=== PATIENT | male | born 1985 ===

== ENCOUNTER 2021-06-03 09:36 | Emergency (ER) | payer OTHER, SELFPAY ==
[2021-06-03 09:42] VITALS: BP 153/84; PULSE 62; RESP 18; TEMP 36.7; O2SAT 99; BMI 25.7
--- NOTE | 2021-06-03 10:13 | DI.RAD.S_ITS ---
PROCEDURE: XR FOOT RT MIN 3V INDICATIONS: Injury TECHNIQUE: 3 views of the foot were acquired. COMPARISON: [facility], CR, XR ANKLE RT MIN 3V, 06/03/2021, 10:16. FINDINGS: Bones: There is a tiny avulsion fracture fragment seen along the lateral aspect of the talus. No additional fractures or dislocations. No suspicious bony lesions. Incidental note is made of accessory ossicles, an os tibiale externum and os peroneum. Soft tissues: No tibiotalar joint effusion. Achilles tendon appears normal. IMPRESSION: Tiny avulsion fracture fragment seen lateral to the talus. This may be from the talus itself or be an avulsion fracture from the distal fibula. This is better seen on the accompanying ankle plain films. If it would be helpful for clinical management decision making in this patient with this given history, please consider a dedicated ankle CT for further evaluation. Dictated by: Wily Tellez M.D. on 06/03/2021 at 9:39 Approved by: Wily Tellez M.D. on 06/03/2021 at 9:41
--- NOTE | 2021-06-03 10:15 | DI.RAD.S_ITS ---
PROCEDURE: XR ANKLE RT MIN 3V INDICATIONS: injury TECHNIQUE: 3 views of the ankle were acquired. COMPARISON: [facility], CR, XR FOOT RT MIN 3V, 06/03/2021, 10:16. FINDINGS: Bones: There is a tiny linear hyperdensity distal to the lateral malleolus, suspicious for small avulsion fracture fragment. No dislocations. Ankle mortise is normally aligned. No suspicious bony lesions. Soft tissues: No tibiotalar joint effusion. Achilles tendon appears normal. IMPRESSION: Possible small avulsion fracture involving the lateral malleolus. Recommend correlation with focal pain and tenderness. Dictated by: Pollo Saunders M.D. on 06/03/2021 at 10:30 Approved by: Pollo Saunders M.D. on 06/03/2021 at 10:32
--- NOTE | 2021-06-03 10:23 | ED.LOWEXIN ---
HPI - Extremity Injury (Lower) General Chief Complaint: Extremity Injury, Lower Stated Complaint: Rt. foot injury Time Seen by Provider: 06/03/21 10:23 Source: patient and EMS Mode of arrival: EMS History of Present Illness HPI Narrative: Patient is a 36-year-old healthy male who presents with right foot injury while at work. 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 No ankle pain no numbness tingling or weakness. Review of Systems Review of Systems Narrative: GENERAL: Denies chills,fever HEENT: Denies throat pain RESPIRATORY: Denies dyspnea, cough, wheezing CARDIOVASCULAR: Denies chest pain, palpitations GASTROINTESTINAL: Denies nausea, vomiting MUSCULOSKELETAL: See HPI SKIN: No rash, no laceration, no pruritus NEUROLOGIC: Denies weakness, dizziness, headache, numbness 8 point review of systems is negative except for those stated above and HPI Patient History Social History Smoking Status: Never smoker Smoking Status: Never smoker alcohol intake frequency: a few times a week Substance Use Type: does not use Exam Initial Vital Signs Initial Vital Signs: Vital Signs Temperature 98.1 F 06/03/21 09:42 Pulse Rate 62 06/03/21 09:42 Respiratory Rate 18 06/03/21 09:42 Blood Pressure 153/84 H 06/03/21 09:42 Pulse Oximetry 99 06/03/21 09:42 GENERAL: Well-appearing, well-nourished and in no acute distress. CARDIOVASCULAR: peripheral pulses in tact, cap refill <2 sec RESPIRATORY: No respiratory distress, speaks in full sentences without difficulty EXTREMITIES: Normal range of motion, no clubbing or edema. Neurovascularly intact Right foot contusion mid foot able to move all toes distally pedal pulse intact right ankle nonpainful specifically lateral malleoli ankle has full range of motion, Achilles intact NEUROLOGICAL: Cranial nerves II through XII grossly intact. Normal gait and speech. SKIN: Warm, dry, no petechiae, no rashes or lesions. Course Orders Ordered: ED Orders 06/03/21 10:13 XR foot RT min 3V Stat 06/03/21 10:15 XR ankle RT min 3V Stat Discontinued Medications Ibuprofen (Ibuprofen 400 Mg Tablet) 800 mg PO NOW ONE Stop: 06/03/21 11:11 Last Admin: 06/03/21 11:17 Dose: 800 mg Documented by: [email or web address] Vital Signs Vital signs: Vital Signs - 8 hr 06/03/21 09:42 Temperature 98.1 F Pulse Rate 62 Respiratory Rate 18 Blood Pressure 153/84 H Pulse Oximetry 99 MDM - Extremity Injury (Lower) Imaging Data Extremity x-ray #1: Radiologist's Impression: PROCEDURE:? XR FOOT RT MIN 3V ? INDICATIONS:? Injury ? TECHNIQUE:? 3 views of the foot were acquired.? ? COMPARISON:? [facility], XR ANKLE RT MIN 3V, 06/03/2021, 10:16. ? FINDINGS:? ? Bones:? There is a tiny avulsion fracture fragment seen along the lateral aspect of the talus.? No additional fractures or dislocations.? No suspicious bony lesions.? Incidental note is made of accessory ossicles, an os tibiale externum and os peroneum. ? Soft tissues:? No tibiotalar joint effusion.? Achilles tendon appears normal.? ? ? IMPRESSION:? Tiny avulsion fracture fragment seen lateral to the talus.? This may be from the talus itself or be an avulsion fracture from the distal fibula.? This is better seen on the accompanying ankle plain films. ? If it would be helpful for clinical management decision making in this patient with this given history, please consider a dedicated ankle CT for further evaluation.? ? Dictated by: Wily Tellez M.D. on 06/03/2021 at 9:39 ? ? Extremity x-ray #2: Radiologist's Impression: PROCEDURE:? XR ANKLE RT MIN 3V ? INDICATIONS:? injury ? TECHNIQUE:? 3 views of the ankle were acquired.? ? COMPARISON:? [facility], XR FOOT RT MIN 3V, 06/03/2021, 10:16. ? FINDINGS:? ? Bones:? There is a tiny linear hyperdensity distal to the lateral malleolus, suspicious for small avulsion fracture fragment.? No dislocations.? Ankle mortise is normally aligned.? No suspicious bony lesions.? ? Soft tissues:? No tibiotalar joint effusion.? Achilles tendon appears normal.? ? ? IMPRESSION:? Possible small avulsion fracture involving the lateral malleolus.? Recommend correlation with focal pain and tenderness. ? ? ? Dictated by: Pollo Saunders M.D. on 06/03/2021 at 10:30 ? ? Approved by: Pollo Saunders M.D. on 06/03/2021 at 10: MDM Narrative Medical decision making narrative: Patient is offered Tylenol and Motrin however rubs to hold off at this time. Right ankle x-ray shows possible avulsion of the lateral malleoli however patient has no injury to the ankle and ankle is nontender this is unlikely clinical significance. He is having pain mid foot only where there is an obvious contusion and. It does hurt to ambulate and weightbear he is given crutches. Eventually does take some pain medication Discharge Plan Departure Patient Disposition: Home Clinical Impression: Contusion of foot, right Instructions: DI for Contusion Activity Restrictions/Additional Instructions: *You have been diagnosed with right foot contusion *What to do: No fracture old ankle fracture but not related to today's. . Elevate, ice 20-30 minutes at a time. *Continue to take medications as directed Ibuprofen 800 mg every 8 hours as needed for [id number] pain Tylenol 1000 mg every 6 hours if needed for moderate pain *Follow up with your primary care provider in 2-3 days -need re-evaluation by pcp for full return to work or call [phone] *Return to ER if you should have increasing pain, numbness weakness or any new, worsening or concerning symptoms Stand Alone Forms: Work Release Note
[2021-06-03] MEDS: IBUPROFEN 400 MG TABLET 800 MG PO (11:17)
== END 2021-06-03 11:47 | disposition home or self-care (01) ==
PROVIDERS: Emergency Provider Emergency Medicine
DX: S90.31XA Contusion of right foot, initial encounter (principal); W20.8XXA Other cause of strike by thrown, projected or falling object, initial encounter; Y93.89 Activity, other specified; Y99.0 Civilian activity done for income or pay
CPT/HCPCS: 73610; 73630; 99283